=== PATIENT | male | born 1960 | race Caucasian/White ===

== ENCOUNTER 2017-05-07 19:04 | Emergency (ER) | payer OTHER ==
[2017-05-07 19:11] VITALS: BP 117/74
[2017-05-07] MEDS ORDERED: Sodium Chloride 0.9% 2,000 ML IV ONE (19:35)
[2017-05-07] MEDS ORDERED: Thiamine 100 MG Tab PO ONE (19:35)
[2017-05-07] MEDS ORDERED: Magnesium Oxide 400 MG Tab PO ONE (19:37)
[2017-05-07] MEDS ORDERED: Folic Acid 1 MG Tab PO ONE (19:38)
--- NOTE | 2017-05-07 19:44 | EDM.PDOC ---
ED HPI GENERAL MEDICAL PROBLEM - General Chief Complaint: Syncope Stated Complaint: [facility] Time Seen by Provider: 05/07/17 19:18 Source of Information: Reports: Patient, EMS, Family History Limitations: Reports: No Limitations - History of Present Illness INITIAL COMMENTS - FREE TEXT/NARRATIVE: Patient is a 57-year-old male presents ED via ambulance after having a syncopal episode. Family states patient has-been outside all day since noon consuming beer. Patient states he drank approximately a 12 pack of Budweiser. Went to the [place] which was outside at approximately 1630 this afternoon. States they were sitting in the shade but noted was quite warm with only a minimal bruise present. Patient had 2 beers at the [place]. States while sitting there started becoming sweaty and lightheaded. States the lightheaded increased sweaty when increase. This was noticed by family and the patient did pass out backwards with family catching him prior to hitting his head. Patient would come to the pass out back again and come back to again. He was minimally disoriented upon coming to. Patient did become pale during these episodes. He is only passed out for a few seconds. There is no seizure activity. Did not bite his tongue or was incontinent to urine or stool. They did pour water on him to cool him down. Patient was assisted down the stairs. He was able to weight-bear with no issues. Denies any nausea/vomiting, shortness of breath, chest pain, palpitations, headache, vision changes, numbness or tingling, weakness, difficulty swallowing prior to episode or after as well. Patient believes associated to consuming alcohol out in the hot sun all day with little water intake. Their was no seizure activity reported. Past medical history includes hypertension Current medications include hydrochlorothiazide and lisinopril and a daily multivitamin. Surgical history noncontributory. Patient does smoke 1 pack per day. Consumes 2-3 beers per night. states he is a alcoholic. Denies any recreational drug use. He has no primary care provider. - Related Data Allergies Allergy/AdvReac Type Severity Reaction Status Date / Time No Known Allergies Allergy Verified 05/07/17 19:11 Home Meds: Home Meds Hydrochlorothiazide 6.25 mg PO DAILY 05/07/17 [History] Lisinopril 30 mg PO DAILY 05/07/17 [History] Past Medical History Cardiovascular History: Reports: Hypertension Gastrointestinal History: Reports: GERD Endocrine/Metabolic History: Reports: Other (See Below) Other Endocrine/Metabolic History: prediabetic - Past Surgical History HEENT Surgical History: Reports: Tonsillectomy Musculoskeletal Surgical History: Reports: Other (See Below) Other Musculoskeletal Surgeries/Procedures:: plates in right leg Social & Family History - Tobacco Use Smoking Status *Q: Current Every Day Smoker Years of Tobacco use: 35 Packs/Tins Daily: 1 Used Tobacco, but Quit: No Second Hand Smoke Exposure: No - Caffeine Use Caffeine Use: Reports: Coffee, Soda - Recreational Drug Use Recreational Drug Use: Yes ED ROS GENERAL - Review of Systems Review Of Systems: ROS reveals no pertinent complaints other than HPI. - Physical Exam Exam: See Below Exam Limited By: Intoxication General Appearance: Alert, WD/WN, No Apparent Distress Eye Exam: Right Eye: Other (Conjunctival hemorrhage that occurred at work yesterday.), Bilateral Eye: EOMI, Nystagmus (Horizontal), PERRL Ears: Normal External Exam Nose: Normal Inspection Throat/Mouth: Normal Voice, No Airway Compromise, Other (Mild dryness to oromucosa) Head Exam: Atraumatic, Normocephalic Neck: Normal Inspection, Supple, Non-Tender, Full Range of Motion. No: Lymphadenopathy (L), Lymphadenopathy (R) Respiratory/Chest: No Respiratory Distress, Lungs Clear, Normal Breath Sounds, No Accessory Muscle Use, Chest Non-Tender Cardiovascular: Normal Peripheral Pulses, Regular Rate, Rhythm, No Murmur GI/Abdominal: Normal Bowel Sounds, Soft, Non-Tender, No Organomegaly, No Distention Neuro Exam (Abbreviated): Alert, Oriented, CN II-XII Intact, Normal Cognition, No Motor/Sensory Deficits, Other (No facial droop, slurred speech, pronator Bryant , difficulty swallowing, weakness to upper/lower extremities, no sensory deficits. Cerebellar functions intact: Finger-nose, rapid alternating movements , [id number]) Back Exam: Normal Inspection, Full Range of Motion. No: Paraspinal Tenderness, Vertebral Tenderness Extremities: Normal Range of Motion, Non-Tender, No Pedal Edema, Normal Capillary Refill, Other (Superficial abrasion to the anterior rodriguez distal aspect of left leg.) Psychiatric: Normal Affect, Normal Mood Skin Exam: Warm, Dry, Normal Color Course - Vital Signs Last Recorded V/S: Last Vital Signs Temp 97.2 F 05/07/17 19:07 Pulse 93 05/07/17 19:07 Resp 19 05/07/17 19:07 BP 117/74 05/07/17 19:07 Pulse Ox 93 L 05/07/17 19:07 - Orders/Labs/Meds Orders: Active Orders 24 hr Category Date Time Status EKG Documentation Completion [RC] ASDIRECTED Care 05/07/17 20:39 Active EKG Documentation Completion [RC] URGENT Care 05/07/17 19:20 Active Head wo Cont [CT] Stat Exams 05/07/17 22:12 Taken Labs: Laboratory Tests 05/07/17 05/07/17 05/07/17 Range/Units 19:40 19:40 19:40 WBC 7.59 (4.23-9.07) K/mm3 RBC 5.05 (4.63-6.08) M/mm3 Hgb 15.4 (13.7-17.5) gm/L Hct 43.9 (40.1-51.0) % MCV 86.9 (79.0-92.2) fl MCH 30.5 (25.7-32.2) pg MCHC 35.1 (32.2-35.5) g/dl RDW Std Deviation 40.3 (35.1-43.9) fL Plt Count 166 (163-337) K/mm3 MPV 11.3 (9.4-12.3) fl Neut % (Auto) 58.4 (34.0-67.9) % Lymph % (Auto) 26.6 (21.8-53.1) % [place] % (Auto) 12.3 H (5.3-12.2) % Eos % (Auto) 2.0 (0.8-7.0) Baso % (Auto) 0.4 (0.1-1.2) % Neut # (Auto) 4.44 (1.78-5.38) K/mm3 Lymph # (Auto) 2.02 (1.32-3.57) K/mm3 [place] # (Auto) 0.93 H (0.30-0.82) K/mm3 Eos # (Auto) 0.15 (0.04-0.54) K/mm3 Baso # (Auto) 0.03 (0.01-0.08) K/mm3 PT 10.7 (8.0-13.0) SECONDS INR 0.98 Sodium 140 (136-145) mEq/L Potassium 3.4 L (3.5-5.1) mEq/L Chloride 104 (98-107) mEq/L Carbon Dioxide 26 (21-32) mEq/L Anion Gap 13.4 (5-15) BUN 16 (7-18) mg/dL Creatinine 1.2 (0.7-1.3) mg/dL Est Cr Clr Drug Dosing 67.92 mL/min Estimated GFR (MDRD) > 60 (>60) mL/min BUN/Creatinine Ratio 13.3 L (14-18) Glucose 106 (74-106) mg/dL Calcium 8.5 (8.5-10.1) mg/dL Magnesium 1.8 (1.8-2.4) mg/dl Total Bilirubin 0.4 (0.2-1.0) mg/dL AST 20 (15-37) U/L ALT 35 (16-63) U/L Alkaline Phosphatase 69 (46-116) U/L Troponin I < 0.017 (0.00-0.056) ng/mL Total Protein 6.9 (6.4-8.2) g/dl Albumin 3.6 (3.4-5.0) g/dl Globulin 3.3 gm/dL Albumin/Globulin Ratio 1.1 (1-2) TSH 3rd Generation 4.096 H (0.358-3.74) uIU/mL Urine Color (Yellow) Urine Appearance (Clear) Urine pH (5.0-8.0) Ur Specific [place] (1.005-1.030) Urine Protein (Negative) Urine Glucose (UA) (Negative) Urine Ketones (Negative) Urine Occult Blood (Negative) Urine Nitrite (Negative) Urine Bilirubin (Negative) Urine Urobilinogen (0.2-1.0) Ur Leukocyte Esterase (Negative) Urine RBC (0-5) /hpf Urine WBC (0-5) /hpf Ur Epithelial Cells (0-5) /hpf Urine Bacteria (FEW) /hpf Urine Mucus (FEW) /hpf Urine Opiates Screen (NEGATIVE) Ur Buprenorphine Scrn (NEGATIVE) Ur Oxycodone Screen (NEGATIVE) Urine Methadone Screen (NEGATIVE) Ur Propoxyphene Screen (NEGATIVE) Ur Barbiturates Screen (NEGATIVE) Ur Tricyclics Screen (NEGATIVE) Ur Phencyclidine Scrn (NEGATIVE) Ur Amphetamine Screen (NEGATIVE) U Methamphetamines Scrn (NEGATIVE) U Benzodiazepines Scrn (NEGATIVE) U Cocaine Metab Screen (NEGATIVE) U Marijuana (THC) Screen (NEGATIVE) Ethyl Alcohol 0.11 (0.00) gm% 05/07/17 05/07/17 05/07/17 Range/Units 20:06 20:06 21:43 WBC (4.23-9.07) K/mm3 RBC (4.63-6.08) M/mm3 Hgb (13.7-17.5) gm/L Hct (40.1-51.0) % MCV (79.0-92.2) fl MCH (25.7-32.2) pg MCHC (32.2-35.5) g/dl RDW Std Deviation (35.1-43.9) fL Plt Count (163-337) K/mm3 MPV (9.4-12.3) fl Neut % (Auto) (34.0-67.9) % Lymph % (Auto) (21.8-53.1) % [place] % (Auto) (5.3-12.2) % Eos % (Auto) (0.8-7.0) Baso % (Auto) (0.1-1.2) % Neut # (Auto) (1.78-5.38) K/mm3 Lymph # (Auto) (1.32-3.57) K/mm3 [place] # (Auto) (0.30-0.82) K/mm3 Eos # (Auto) (0.04-0.54) K/mm3 Baso # (Auto) (0.01-0.08) K/mm3 PT (8.0-13.0) SECONDS INR Sodium (136-145) mEq/L Potassium (3.5-5.1) mEq/L Chloride (98-107) mEq/L Carbon Dioxide (21-32) mEq/L Anion Gap (5-15) BUN (7-18) mg/dL Creatinine (0.7-1.3) mg/dL Est Cr Clr Drug Dosing mL/min Estimated GFR (MDRD) (>60) mL/min BUN/Creatinine Ratio (14-18) Glucose (74-106) mg/dL Calcium (8.5-10.1) mg/dL Magnesium (1.8-2.4) mg/dl Total Bilirubin (0.2-1.0) mg/dL AST (15-37) U/L ALT (16-63) U/L Alkaline Phosphatase (46-116) U/L Troponin I < 0.017 (0.00-0.056) ng/mL Total Protein (6.4-8.2) g/dl Albumin (3.4-5.0) g/dl Globulin gm/dL Albumin/Globulin Ratio (1-2) TSH 3rd Generation (0.358-3.74) uIU/mL Urine Color Yellow (Yellow) Urine Appearance Clear (Clear) Urine pH 6.0 (5.0-8.0) Ur Specific [place] 1.025 (1.005-1.030) Urine Protein 1+ H (Negative) Urine Glucose (UA) Negative (Negative) Urine Ketones Negative (Negative) Urine Occult Blood Negative (Negative) Urine Nitrite Negative (Negative) Urine Bilirubin Negative (Negative) Urine Urobilinogen 0.2 (0.2-1.0) Ur Leukocyte Esterase Negative (Negative) Urine RBC 0-5 (0-5) /hpf Urine WBC 0-5 (0-5) /hpf Ur Epithelial Cells 0-5 (0-5) /hpf Urine Bacteria Few (FEW) /hpf Urine Mucus Moderate H (FEW) /hpf Urine Opiates Screen Negative (NEGATIVE) Ur Buprenorphine Scrn Negative (NEGATIVE) Ur Oxycodone Screen Negative (NEGATIVE) Urine Methadone Screen Negative (NEGATIVE) Ur Propoxyphene Screen Negative (NEGATIVE) Ur Barbiturates Screen Negative (NEGATIVE) Ur Tricyclics Screen Negative (NEGATIVE) Ur Phencyclidine Scrn Negative (NEGATIVE) Ur Amphetamine Screen Negative (NEGATIVE) U Methamphetamines Scrn Negative (NEGATIVE) U Benzodiazepines Scrn Negative (NEGATIVE) U Cocaine Metab Screen Negative (NEGATIVE) U Marijuana (THC) Screen Negative (NEGATIVE) Ethyl Alcohol (0.00) gm% Meds: Medications Discontinued Medications Generic Name Dose Route Start Last Admin Trade Name Freq PRN Reason Stop Dose Admin Folic Acid 1 mg 05/07/17 19:38 05/07/17 19:49 Folic Acid PO 05/07/17 19:39 1 mg ONETIME ONE Administration Sodium Chloride 2,000 mls @ 999 mls/hr 05/07/17 19:35 05/07/17 19:42 Normal Saline IV 05/07/17 21:35 999 mls/hr ONETIME ONE Administration Magnesium Oxide 400 mg 05/07/17 19:37 05/07/17 19:49 Magnesium Oxide PO 05/07/17 19:38 400 mg ONETIME ONE Administration Thiamine HCl 100 mg 05/07/17 19:35 05/07/17 19:43 Vitamin B-1 PO 05/07/17 19:36 100 mg ONETIME ONE Administration - Re-Assessments/Exams Free Text/Narrative Re-Assessment/Exam: Ordered remainder of fluids to be pushed in. Ordered additional 1000 mls of NS, mg 400mg PO, thiamine 100mg PO, folic acid 1mg po, and zofran 4mg IVP. Initial labs and studies include CBC, chem 14, PTT/INR, troponin, TSH, EtOH, and urine drug tox, magnesium, and UA. 05/07/17 20:30 EKG sinus rhythm rate of [address] changes noted. Labs reviewed: CBC essentially normal. Sodium 140, potassium 3.4, creatinine 1.2 , BUN 16, INR gap is 13.4, glucose 106, troponin less than 0.017, TSH is mildly elevated 4.096, UA negative for infection, urine specific gravity is 1.025, urine drug tox was negative except for EtOH was 0.11. Will add additional 1 liter of NS. Patients urine was quite dark. In addition will order 2nd troponin and EKG two hours from previous draw. At that point will determine clinical course. 05/07/17 22:02 second EKG sinus rhythm at a rate of [address] changes. 05/07/17 22:11 patient got out of the bed and walked to the bathroom with no issues. Upon standing patient did have some stool fall from his pants. There is a small yellow spot on the bed. Appears patient is incontinent to urine or stool. This may be related to a seizure activity. Possibility this may related to vasovagal and passing out. Unclear at this time. He has no seizure activity in the past. Will obtain a CT of the head to ensure no bleeds present. 05/07/17 22:[address] of the head did not reveal any acute abnormalities. Departure - Departure Time of Disposition: 22:41 Disposition: Home, Self-Care 01 Condition: Fair Clinical Impression: Vasovagal syncope, Hypokalemia Acute alcohol intoxication Qualifiers: Complication of substance-induced condition: uncomplicated Qualified Code(s): F10.920 - Alcohol use, unspecified with intoxication, uncomplicated - Discharge Information Instructions: Syncope, [id number], Dehydration, Adult, [id number] Referrals: PCP,None [Primary Care Provider] - Kvng Dobson [Physician] - Forms: ED Department Discharge Additional Instructions: As discussed most likely etiology of current complaint was vasovagal. Largely in part because you became diaphoretic, lightheaded, and passed out. Heart rate was low at that time. Contributing factors for vasovagal, alcohol use, poor water intake, and hot environment. Thus suggest going home pushing the fluids ensuring adequate rest and a balanced diet. See a primary care provider in one week for reevaluation. Refrain from alcohol use. Seek help for alcoholism. Return to ED for any new or worsening symptoms. No driving this evening. Stop smoking. - My Orders Last 24 Hours: My Active Orders 05/07/17 19:20 EKG Documentation Completion [RC] URGENT 05/07/17 20:39 EKG Documentation Completion [RC] ASDIRECTED 05/07/17 22:12 Head wo Cont [CT] Stat - Assessment/Plan Last 24 Hours: My Active Orders 05/07/17 19:20 EKG Documentation Completion [RC] URGENT 05/07/17 20:39 EKG Documentation Completion [RC] ASDIRECTED 05/07/17 22:12 Head wo Cont [CT] Stat
--- NOTE | 2017-05-09 08:03 | CT ---
Head CT Technique: Multiple axial sections through the brain were obtained. Intravenous contrast was not utilized. Comparison: No previous intracranial imaging. Findings: Ventricles along with basal cisterns and sulci over the convexities are within normal limits for the patient's age. No abnormal parenchymal densities are seen. No evidence of intracranial hemorrhage. No midline shift or mass effect is seen. Bone window settings were reviewed which show no discrete calvarial abnormality. Mild mucosal thickening is seen within the sphenoid and ethmoid sinuses without air-fluid levels. Mild mucosal thickening is seen within the left frontal sinus. Impression: 1. Mild sinus findings which are likely chronic. 2. No acute intracranial abnormality is seen. Diagnostic code #2 I agree with preliminary report issued by [facility] ([facility] preliminary report dictated on 05/07/17, 11:43 PM Central Time)
== END 2017-05-07 23:00 | disposition home or self-care (01) ==
LOC: JD.ED 19:04
DX: R55 Syncope and collapse (principal); E87.6 Hypokalemia; I10 Essential (primary) hypertension; F17.210 Nicotine dependence, cigarettes, uncomplicated; K21.9 Gastro-esophageal reflux disease without esophagitis; Z98.890 Other specified postprocedural states
CPT/HCPCS: 36415; 70450; 80053; 80306; 81001; 83735; 84443; 84484; 85025; 85610; 93005; 96360; 99285; A9270; G0480; J7040; 99284